=== PATIENT | female | born 1955 | race Caucasian/White ===

== ENCOUNTER 2020-01-17 08:01 | Observation (INO) | payer OTHER ==
[~2020-01-17] VITALS: Ht 162.6 cm; Wt 122.5 kg
[2020-01-17 08:14] VITALS: BP_SYST 86
[2020-01-17 09:30] LABS: BASOPHILS % (AUTO) 0.4 % (0.0-2.0); EOSINOPHILS % (AUTO) 0.3 % (0.0-4.0); HEMATOCRIT 32.8 % (36-48); HEMOGLOBIN 10.8 g/dL (12.0-16.0); LYMPHOCYTES # (AUTO) 0.9 K/uL (1.0-5.5); LYMPHOCYTES % (AUTO) 7.3 % (20.5-51.5); MEAN CORPUSCULAR HEMOGLOBIN 30 pg (27-31); MEAN CORPUSCULAR HGB CONC 33 % (32-36); MEAN CORPUSCULAR VOLUME 90 fL (79.0-98.0); MONOCYTES # (AUTO) 0.8 K/uL (0.0-1.0); MONOCYTES % (AUTO) 6.5 % (1.7-9.3); NEUTROPHILS # (AUTO) 10.4 K/uL (1.8-7.7); NEUTROPHILS % (AUTO) 85.5 % (40.0-70.0); PLATELET COUNT (AUTO) 235 K/uL (130-430); RED BLOOD CELL COUNT(AUTO) 3.64 MIL/uL (4.2-6.2); RED CELL DISTRIBUTION WIDTH 14.5 % (9.0-15.0); WHITE BLOOD COUNT (AUTO) 12.2 K/uL (4.8-10.8)
[2020-01-17] MEDS ORDERED: ATROPINE SULFATE 1 MG/10 ML SYRINGE IVP ONE (09:30)
[2020-01-17] MEDS ORDERED: NS 500 ML IV ONE (09:30)
[2020-01-17 09:36] LABS: CREATININE 1.92 mg/dL (0.55-1.30); POTASSIUM 3.5 mmol/L (3.5-5.1)
[2020-01-17 09:49] LABS: ALBUMIN 3.9 g/dL (3.4-4.8); TOTAL BILIRUBIN 0.4 mg/dL (0.0-1.0)
[2020-01-17 10:46] LABS: CKMB RELATIVE INDEX 1.3 (0.0-2.9); CREATINE KINASE MB 8.4 ng/mL (0-3.6)
[2020-01-17 11:39] VITALS: BP_SYST 124
[2020-01-17 12:00] VITALS: BP_SYST 124
[2020-01-17] MEDS: NACL 0.9% 1,000 ML IV SCH (12:31)
[2020-01-17] MEDS ORDERED: DILT180C67 PO (13:16)
[2020-01-17] MEDS ORDERED: CELE200C PO (13:16)
[2020-01-17] MEDS ORDERED: RISP2TAB5 PO (13:16)
[2020-01-17] MEDS ORDERED: DOXE6TAB3 PO (13:16)
[2020-01-17] MEDS ORDERED: LEVO80CA PO (13:16)
[2020-01-17] MEDS ORDERED: CLON0.5T12 PO (13:16)
[2020-01-17] MEDS ORDERED: BUPR300T55 PO (13:16)
[2020-01-17] MEDS ORDERED: ZOLP10TA2 PO (13:16)
[2020-01-17] MEDS ORDERED: ARMO250T6 PO (13:16)
[2020-01-17] MEDS ORDERED: OLME40TA12 PO (13:16)
[2020-01-17] MEDS ORDERED: HYDR25TA4 PO (13:16)
[2020-01-17] MEDS ORDERED: PRO40 PO (13:16)
[2020-01-17] MEDS ORDERED: QUET150T4 PO (13:16)
[2020-01-17] MEDS ORDERED: INSULIN REGULAR, HUMAN 100 UNITS/ML, 10 ML VIAL (humuLIN R) SUBCUT PRN (13:45)
[2020-01-17] MEDS ORDERED: PIOG1TAB PO (13:47)
[2020-01-17] MEDS ORDERED: RESEYE OP (13:47)
[2020-01-17] MEDS ORDERED: DEXTROSE 50%-WATER 50 ML DISP.SYRIN IVP PRN (14:00)
[2020-01-17] MEDS ORDERED: D5W 1,000 ML IV PRN (14:00)
[2020-01-17] MEDS ORDERED: GLUCOSE 15 GM GEL (in 37.5 GM TUBE) PO PRN (14:00)
[2020-01-17] MEDS ORDERED: HEPARIN SODIUM,PORCINE 5000 UNITS/ML VIAL SUBCUT ONE (14:00)
[2020-01-17 17:03] VITALS: BP_SYST 127
[2020-01-17] MEDS ORDERED: hydrALAZINE HCL 20 MG/ML VIAL IVP PRN ×2 (18:45→18:53)
[2020-01-17 20:00] VITALS: BP_SYST 140
[2020-01-17] MEDS ORDERED: DIPHENHYDRAMINE HCL 25 MG CAPSULE PO ONE (20:45)
[2020-01-17] MEDS ORDERED: ACETAMINOPHEN 325 MG TABLET PO ONE (20:45)
[2020-01-17] MEDS ORDERED: clonazePAM 0.5 MG TABLET PO ONE (20:45)
[2020-01-17] MEDS: HEPARIN SODIUM,PORCINE 5000 UNITS/ML VIAL SUBCUT SCH (23:09)
[2020-01-18 00:54] VITALS: BP_SYST 138
[2020-01-18] MEDS: NACL 0.9% 1,000 ML IV SCH (03:35)
[2020-01-18 08:00] VITALS: BP_SYST 134
[2020-01-18] MEDS ORDERED: ZOLPIDEM TARTRATE 5 MG TABLET PO PRN (10:45)
[2020-01-18] MEDS ORDERED: buPROPion HCL 150 MG XL TAB PO ONE (10:45)
[2020-01-18] MEDS ORDERED: clonazePAM 0.5 MG TABLET PO ONE (10:45)
[2020-01-18 11:11] LABS: BASOPHILS % (AUTO) 0.2 % (0.0-2.0); EOSINOPHILS % (AUTO) 0.4 % (0.0-4.0); HEMATOCRIT 32.4 % (36-48); HEMOGLOBIN 10.9 g/dL (12.0-16.0); LYMPHOCYTES # (AUTO) 0.7 K/uL (1.0-5.5); LYMPHOCYTES % (AUTO) 13.2 % (20.5-51.5); MEAN CORPUSCULAR HEMOGLOBIN 30 pg (27-31); MEAN CORPUSCULAR HGB CONC 34 % (32-36); MEAN CORPUSCULAR VOLUME 89 fL (79.0-98.0); MONOCYTES # (AUTO) 0.4 K/uL (0.0-1.0); NEUTROPHILS # (AUTO) 4.1 K/uL (1.8-7.7); NEUTROPHILS % (AUTO) 78.2 % (40.0-70.0); PLATELET COUNT (AUTO) 252 K/uL (130-430); RED BLOOD CELL COUNT(AUTO) 3.62 MIL/uL (4.2-6.2); RED CELL DISTRIBUTION WIDTH 14.8 % (9.0-15.0)
[2020-01-18 11:14] LABS: WHITE BLOOD COUNT (AUTO) 5.2 K/uL (4.8-10.8)
[2020-01-18 11:22] LABS: POTASSIUM 3.7 mmol/L (3.5-5.1)
[2020-01-18 11:23] LABS: CREATININE 1.11 mg/dL (0.55-1.30)
[2020-01-18 11:27] LABS: ALBUMIN 3.5 g/dL (3.4-4.8); TOTAL BILIRUBIN 0.6 mg/dL (0.0-1.0)
[2020-01-18] MEDS: HEPARIN SODIUM,PORCINE 5000 UNITS/ML VIAL SUBCUT SCH (12:12)
[2020-01-18 12:40] VITALS: BP_SYST 143
[2020-01-18 12:41] VITALS: BP_SYST 137; BP_SYST 140
[2020-01-18] MEDS ORDERED: clonazePAM 0.5 MG TABLET PO SCH (15:00)
[2020-01-18 17:04] VITALS: BP_SYST 131
[2020-01-18 17:37] VITALS: BP_SYST 131
[2020-01-18] MEDS ORDERED: QUEtiapine FUMARATE 100 MG TABLET PO SCH (21:00)
[2020-01-19] MEDS ORDERED: buPROPion HCL 150 MG XL TAB PO SCH (09:00)
[2020-01-19] MEDS ORDERED: risperiDONE 1 MG TABLET (RisperDAL) PO SCH (09:00)
[2020-01-19] MEDS ORDERED: DILTIAZEM HCL 180 MG CAP.SR.24H PO SCH (09:00)
[2020-01-19] MEDS ORDERED: PANTOPRAZOLE SODIUM 40 MG TAB PO SCH (09:00)
== END 2020-01-18 18:33 ==
LOC: SED 08:01 → STU 10:47
PROVIDERS: ADMIT Internal Medicine Hospice and Palliative Medicine; ATTEND Internal Medicine Hospice and Palliative Medicine
DX: R55 Syncope and collapse (principal); E11.9 Type 2 diabetes mellitus without complications; I10 Essential (primary) hypertension; E66.01 Morbid (severe) obesity due to excess calories; E78.5 Hyperlipidemia, unspecified; K58.9 Irritable bowel syndrome, unspecified; Z88.2 Allergy status to sulfonamides; Z79.899 Other long term (current) drug therapy
CPT/HCPCS: 36415 ×2; 71045; 73552; 80053 ×2; 82550; 82553; 82962 ×2; 83880; 84484; 85025 ×2; 93005; 93306; 96361 ×3; 96372 ×2; 96374; 97162; 97530; 99291; G0378; J0461; J1644 ×2; J1815; J7030 ×2; Q0163